=== PATIENT | male | born 1965 | race Caucasian/White ===

== ENCOUNTER 2019-10-12 21:41 | Inpatient (IN) | payer OTHER, BC ==
--- NOTE | 2019-10-12 22:48 | PDOC ---
History of Present Illness - General Chief Complaint: Pain Stated Complaint: BACK PAIN Time Seen by Provider: 10/12/19 22:47 History Source: Patient, Family - History of Present Illness Initial Comments: 10/13/19 00:00 Mr. Mclean is a 54 y/o man with hx prior urolithiasis, asthma p.w acute onset L flank pain that started last night. He reports that the pain began while he was at rest, described as a severe ache, radiating to the L flank. He reports nausea with one episode of nbnb vomiting last night. He denies any fevers, chills, weakness, chest pain, shortness of breath. He reports remote history of urolithiasis that passed spontaneously. Past History - Past Medical History Allergies/Adverse Reactions: Allergies Allergy/AdvReac Type Severity Reaction Status Date / Time Penicillins Allergy Verified 10/12/19 21:45 Asthma: Yes (childhood) COPD: No GI Disorders: Yes (colitis) Kidney Stones: Yes - Surgical History Abdominal Surgery: Yes (colon resection) - Psycho Social/Smoking Cessation Hx Smoking History: Current some day smoker Information on smoking cessation initiated: No Review of Systems - Review of Systems Able to Perform ROS?: Yes Comments:: 10/13/19 00:13 ROS: GENERAL/CONSTITUTIONAL: Chills. No fever. No weakness. HEAD, EYES, EARS, NOSE AND THROAT: No change in vision. No ear pain or discharge. No sore throat. CARDIOVASCULAR: No chest pain or shortness of breath RESPIRATORY: No cough, wheezing, or hemoptysis. GASTROINTESTINAL: Nausea, vomiting. No diarrhea or constipation. GENITOURINARY: No dysuria, frequency, or change in urination. MUSCULOSKELETAL: Flank pain. No other joint or muscle swelling or pain. No neck or back pain. SKIN: No rash NEUROLOGIC: No headache, vertigo, loss of consciousness, or change in strength/ sensation. ENDOCRINE: No increased thirst. No abnormal weight change HEMATOLOGIC/LYMPHATIC: No anemia, easy bleeding, or history of blood clots. ALLERGIC/IMMUNOLOGIC: No hives or skin allergy. *Physical Exam - Vital Signs Last Vital Signs Temp Pulse Resp BP Pulse Ox 98.1 F 75 18 132/77 100 10/12/19 21:42 10/12/19 21:42 10/12/19 21:42 10/12/19 21:42 10/12/19 21:42 - Physical Exam 10/13/19 00:15 PE: GENERAL: Awake, alert, and fully oriented, in no acute distress HEAD: No signs of trauma, normocephalic, atraumatic EYES: PERRLA, EOMI, sclera anicteric, conjunctiva clear ENT: Auricles normal inspection, hearing grossly normal, nares patent, oropharynx clear without exudates. Moist mucosa NECK: Normal ROM, supple, no lymphadenopathy, JVD, or masses LUNGS: No distress, speaks full sentences, clear to auscultation bilaterally HEART: Regular rate and rhythm, normal S1 and S2, no murmurs, rubs or gallops, peripheral pulses normal and equal bilaterally. ABDOMEN: Soft, nontender, normoactive bowel sounds. No guarding, no rebound. No masses EXTREMITIES : Normal inspection, Normal range of motion, no edema. No clubbing or cyanosis NEUROLOGICAL: Cranial nerves II through XII grossly intact. Normal speech, normal gait, no focal sensorimotor deficits SKIN: Warm, Dry, normal turgor, no rashes or lesions noted ED Treatment Course - LABORATORY CBC & Chemistry Diagram: 10/12/19 23:14 10/12/19 23:14 Medical Decision Making - Medical Decision Making 10/13/19 00:16 54M w/hx prior urolithiasis, asthma, p/w acute onset L flank pain, c/w urolithiasis vs infected stone. Differential also includes MSK strain, UTI/ pyelonephritis, although UTI unlikely without dysuria. Plan: CBC CMP UA Urine culture Toradol 30 mg IV 1L IV LR Spiral CT renal stone Dispo: Pending labs, imaging Discharge - Follow up/Referral Referrals: Lonnie Crawford [Primary Care Provider] - - Patient Discharge Instructions - Post Discharge Activity
--- NOTE | 2019-10-12 22:59 | PDOC ---
Attending Attestation - Resident Resident Name: Arias Amaro - ED Attending Attestation I have performed the following: I have examined & evaluated the patient, The case was reviewed & discussed with the resident, I agree w/resident's findings & plan - HPI HPI: 10/13/19 01:15 Pt comes with dysuria and flank pain and possible kidney stone, Pt has never been here before and we have no labs for comparision. Afebrile VSS - Physicial Exam PE: 10/13/19 01:16 afebrile A+Ox3 Heart RRR Lungs clear Abd soft NT ND + BS - Medical Decision Making 10/13/19 01:13 Pt has elevated BUN/Cr and he will receive 1L IV hydration as well as oral hydration. 10/13/19 01:13 Pt has hypoK+ and he will have mg and K repleted 10/13/19 01:14 WBC is 14; as well as leukicytes in the UA; he will be treated with bactrim DS; fluoroquinolones have black box warning; pt has PCN allergy. 10/13/19 02:59 Pt has a 6.4mm stone in the left ureter; Pt has hydronephrosis; infected stone and he has elevated BUN/Cr. Pt will be admitted. [facility] are aware. 10/13/19 03:14 Patient Name: MOLLY HUMPHRIES THIS IS A PRELIMINARY REPORT FROM [facility] DATE OF SERVICE: 2019-10-13 01:23:19 IMAGES: [id number] EXAM: CT ABDOMEN WITHOUT CONTRAST AND CT PELVIS WITHOUT CONTRAST HISTORY: 54-Year-Old Male Flank Pain And History Of Stones. COMPARISON: None. FINDINGS: Mild basilar atelectasis. Lack of intravenous contrast limits this exam. Mild hepatosplenomegaly. Cholelithiasis with moderate gallbladder distention most likely associated with gallbladder dysmotility may be associated with chronic cholecystitis. Pancreas and adrenal glands appear unremarkable. Right kidney cortical cyst. Moderate left hydronephrosis with a 6 x 6 x 4 mm stone in the proximal left ureter near the left ureteropelvic junction. Small hiatal hernia. Stomach and proximal small bowel appear unremarkable. Mild nonspecific wall thickening of the distal small bowel in the right lower quadrant most likely to mild infectious or inflammatory enteritis. Total colectomy with a rectal pouch formed in the pelvis and mild nonspecific wall thickening of the rectal pouch most likely due to infectious or inflammatory enteritis. Nodular nonspecific prostatomegaly. Multiple bladder stones. Mild bladder wall thickening may be due to infectious cystitis. Moderate to severe degenerative disc disease and degenerative joint disease of the facets in the lower lumbar spine. Transitional anatomy at the lumbosacral junction. Anterior midline abdominal scarring. IMPRESSION: Moderate left hydronephrosis with a 6 mm stone in the proximal left ureter near the left ureteropelvic junction. Multiple bladder stones. Mild bladder wall thickening may be due to infectious cystitis. Nodular nonspecific prostatomegaly. If clinically indicated follow-up outpatient PSA level may be needed. Small hiatal hernia. Mild nonspecific wall thickening of the distal small bowel in the right lower quadrant most likely to mild infectious or inflammatory enteritis. Total colectomy with a rectal pouch formed in the pelvis and mild nonspecific wall thickening of the rectal pouch most likely due to infectious or inflammatory enteritis. Mild hepatosplenomegaly. Cholelithiasis with moderate gallbladder distention most likely associated with gallbladder dysmotility may be associated with chronic cholecystitis. If clinically indicated follow-up Outpatient Nuclear Medicine Hepatobiliary Scan With a Slow 10 Minute Cholecystokinin Injection Gallbladder Ejection Fraction Calculation may be needed. Moderate to severe degenerative disc disease and degenerative joint disease of the facets in the lower lumbar spine. Transitional anatomy at the lumbosacral junction.
[2019-10-12] MEDS ORDERED: IBUPROFEN 600 MG TABLET (FP) PO ONE (23:09)
[2019-10-12] MEDS ORDERED: KETOROLAC TROMETHAMINE 15 MG/ML VIAL IM ONE ×2 (23:12)
[2019-10-12] MEDS ORDERED: KETOROLAC TROMETHAMINE 30 MG/1 ML VIAL ONE (23:27)
[2019-10-12] MEDS ORDERED: KETOROLAC TROMETHAMINE 15 MG/ML VIAL IVPB ONE (23:28)
[2019-10-12 23:32] LABS: BASO % 0.4 % (0-2.0); HEMATOCRIT 46.6 % (35.4-49); HEMOGLOBIN 15.7 GM/dL (11.7-16.9); LYMPH % 7.8 % (8-40); MCH 31.1 pg (25.7-33.7); MCHC 33.7 g/dl (32.0-35.9); MEAN CELL VOLUME 92.3 fl (80-96); MEAN PLT VOLUME 7.8 fl (7.5-11.1); MONO % 8.3 % (3.8-10.2); NEUT % 82.5 % (42.8-82.8); PLATELET COUNT 255 K/MM3 (134-434); RBC 5.05 M/mm3 (4.00-5.60)
[2019-10-12 23:51] LABS: ALBUMIN 3.9 g/dl (3.4-5.0); BLOOD UREA NITROGEN 24.9 mg/dL (7-18); CALCIUM 8.9 mg/dL (8.5-10.1); CREATININE 2.6 mg/dL (0.55-1.3); POTASSIUM 3.3 mmol/L (3.5-5.1); TOT PROT 7.7 g/dl (6.4-8.2)
[2019-10-13] MEDS ORDERED: LACTATED RINGERS SOLUTION 1000 ML INFUS.BAG IV ONE (00:10)
[2019-10-13 00:32] LABS: EPI CELLS 13.3 /HPF (0-5/HPF); HYALINE CASTS 22 /lpf (0-8); PH,URINE 5.5 (5.0-8.0); URINE APPEARANCE CLOUDY; URINE BACTERIA 3.8 /hpf (NEGATIVE); URINE BILIRUBIN NEGATIVE (NEGATIVE); URINE COLOR YELLOW; URINE GLUCOSE (UA) NEGATIVE (NEGATIVE); URINE KETONE TRACE (NEGATIVE); URINE LEUK ESTERASE 1+ (NEGATIVE); URINE NITRITE NEGATIVE (NEGATIVE); URINE PROTEIN 1+ (NEGATIVE); URINE RBC 7 /hpf (0-4); URINE WBC 18 /hpf (0-5)
[2019-10-13] MEDS ORDERED: POTASSIUM CHLORIDE TABS 20 MEQ TABLET.ER (FP) PO ONE ×3 (00:53→04:11)
[2019-10-13] MEDS ORDERED: SULFAMETHOXAZOLE/TRIMETHOPRIM 800MG/160MG D.S. TABLET PO ONE (00:53)
[2019-10-13] MEDS ORDERED: MAGNESIUM SULF 50% (8.12 MEQ/2 ML-1 GM VIAL) IVPB ONE (00:53)
[2019-10-13] MEDS ORDERED: SULFAMETHOXAZOLE/TRIMETHOPRIM 800MG/160MG D.S. TABLET ONE (01:15)
[2019-10-13] MEDS ORDERED: MAGNESIUM SULFATE IN WATER 2 GM/50 ML IVPB IVPB ONE (01:16)
--- NOTE | 2019-10-13 02:15 | PDOC ---
*Physical Exam - Vital Signs Last Vital Signs Temp Pulse Resp BP Pulse Ox 98.1 F 75 18 132/77 100 10/12/19 21:42 10/12/19 21:42 10/12/19 21:42 10/12/19 21:42 10/12/19 21:42 ED Treatment Course - LABORATORY CBC & Chemistry Diagram: 10/12/19 23:14 10/12/19 23:14 - ADDITIONAL ORDERS Additional order review: Laboratory Results 10/13/19 10/12/19 00:12 23:14 Sodium 142 Potassium 3.3 L Chloride 112 H Carbon Dioxide 24 Anion Gap 6 L BUN 24.9 H Creatinine 2.6 H Est GFR (CKD-EPI)AfAm 30.80 Est GFR (CKD-EPI)NonAf 26.57 Random Glucose 145 H Calcium 8.9 Total Bilirubin 1.0 AST 32 ALT 33 Alkaline Phosphatase 148 H Total Protein 7.7 Albumin 3.9 Urine Color Yellow Urine Appearance Cloudy Urine pH 5.5 Ur Specific [place] 1.026 Urine Protein 1+ H Urine Glucose (UA) Negative Urine Ketones Trace H Urine Blood 2+ H Urine Nitrite Negative Urine Bilirubin Negative Urine Urobilinogen 1.0 Ur Leukocyte Esterase 1+ H Urine WBC (Auto) 18 Urine RBC (Auto) 7 Urine Casts (Auto) 22 U Epithel Cells (Auto) 13.3 Urine Bacteria (Auto) 3.8 10/12/19 23:14 RBC 5.05 MCV 92.3 MCHC 33.7 RDW 14.0 MPV 7.8 Neutrophils % 82.5 Lymphocytes % 7.8 L Monocytes % 8.3 Eosinophils % 1.0 Basophils % 0.4 - Medications Given in the ED: ED Medications Discontinued Medications Generic Name Dose Route Start Last Admin Trade Name Tiffani PRN Reason Stop Dose Admin Ibuprofen 600 mg 10/12/19 23:09 10/12/19 23:38 Motrin - PO 10/12/19 23:10 Not Given ONCE ONE Ketorolac Tromethamine 15 mg 10/12/19 23:12 10/12/19 23:38 Toradol Injection - IM 10/12/19 23:13 Not Given ONCE ONE Ketorolac Tromethamine 30 mg 10/12/19 23:12 10/12/19 23:32 Toradol Injection - IM 10/12/19 23:13 Not Given ONCE ONE Ketorolac Tromethamine 30 mg 10/12/19 23:28 10/12/19 23:38 Toradol Injection - IVPB 10/12/19 23:29 30 mg ONCE ONE Administration Lactated Ringer's 1,000 ml 10/13/19 00:10 10/13/19 00:13 Lactated Ringers Solution IV 10/13/19 00:11 1,000 ml ONCE ONE Administration Magnesium Sulfate 2 gm 10/13/19 00:53 10/13/19 01:21 Magnesium Sulfate IVPB 10/13/19 00:54 2 gm ONCE ONE Administration Potassium Chloride 40 meq 10/13/19 00:53 10/13/19 01:21 K-Dur - PO 10/13/19 00:54 40 meq ONCE ONE Administration Trimethoprim/Sulfamethoxazole 1 each 10/13/19 00:53 10/13/19 01:21 Bactrim Ds - PO 10/13/19 00:54 1 each ONCE ONE Administration Medical Decision Making - Medical Decision Making 10/13/19 02:14 54M w/hx prior urolithiasis, asthma, p/w acute onset L flank pain, c/w urolithiasis vs infected stone. WBC 14.0 Cr 2.6 UA with 1+ leuk CT: 6mm stone in left kidney with hydroureter will admit for UTI, hydroureter, 6mm stone and infected stone pending mbmd 10/13/19 02:[address] ashraf will repeat bmp and ua for clean catch Discharge - Discharge Information Problems reviewed: Yes Clinical Impression/Diagnosis: Kidney stone UTI (urinary tract infection) Qualifiers: Urinary tract infection type: site unspecified Hematuria presence: without hematuria Qualified Code(s): N39.0 - Urinary tract infection, site not specified Condition: Fair - Follow up/Referral Referrals: Lonnie Crawford [Primary Care Provider] - - Patient Discharge Instructions - Post Discharge Activity
[2019-10-13] MEDS ORDERED: LACTATED RINGERS SOLUTION 1,000 ML/1,000 ML INFUS.BAG IV SCH (03:30)
[2019-10-13 04:01] LABS: BLOOD UREA NITROGEN 23.9 mg/dL (7-18); CALCIUM 8.8 mg/dL (8.5-10.1); CREATININE 2.4 mg/dL (0.55-1.3); POTASSIUM 3.2 mmol/L (3.5-5.1)
--- NOTE | 2019-10-13 04:07 | HP ---
CHIEF COMPLAINT: back pain PCP: Dr. Lonnie Crawford HISTORY OF PRESENT ILLNESS: Yaron Mclean is a 54 year old male with a past medical history of asthma, gout (on allopurinol), urolithiasis, colitis (s/p colon resection) who presents with a multiple day history of flank pain. The patient noted that he was sitting and resting when his flank pain on the L side began 2 days prior to admission. He stated that the pain was of a dull nature and was not relieved with positional changes or at home pain medications. He was unable to lay flat on his back, however he noted that he has disk disease and is not typically able to lay on his back for extended periods of time. The pain radiated to his L side but did not radiate further to his groin. He noted that he had bloating and mild abdominal pain, nausea, and one episode of non bloody non bilious vomiting. Endorsed poor appetite and poor fluid intake for the last several days. Also endorsed a subjective feeling of warmth. Denies dietary changes, excessive calcium consumption, no MVI or supplements. Denies dysuria, hematuria , pyuria, frequency, hesitancy, chest pain, shortness of breath, chills, constipation, diarrhea, dizziness, lightheadedness, headaches, numbness, tingling. ER course was notable for: (1) WBC 14.0, K 3.3, CRE 2.6, UA + for LE, bacteria, WBC but with elevated epithelial cells (2) CT as per call circuit worker read noting moderate L hydronephrosis with mm stone in the proximal L ureter near L uteropelvic junction, bladder stones, mild bladder wall thickening, prostatomegaly, nonspecific distal small bowel changes suggestive of mild infection or inflammatory process, mild hepatosplenomegaly, cholelithaisis, moderate to severe degenerative disc disease (3) Given 2L LR, Mg 2gm, Toradol 30mg , K dur, Bactrim Recent Travel: denies PAST MEDICAL HISTORY: as above PAST SURGICAL HISTORY: colon resection Social History: Smoking: occasional cigars Alcohol: denies Drugs: denies Allergies Penicillins Allergy (Verified 10/12/19 21:45) HOME MEDICATIONS: REVIEW OF SYSTEMS CONSTITUTIONAL: fever, loss of appetite Absent: chills, diaphoresis, generalized weakness, malaise, HEENT: Absent: rhinorrhea, nasal congestion, throat pain, throat swelling, difficulty swallowing, CARDIOVASCULAR: Absent: chest pain, syncope, palpitations, irregular heart rate, lightheadedness RESPIRATORY: Absent: cough, shortness of breath, dyspnea with exertion, orthopnea, wheezing, GASTROINTESTINAL: abdominal distension, nausea, vomiting Absent: abdominal pain, diarrhea, constipation, GENITOURINARY: flank pain Absent: dysuria, frequency, urgency, hesitancy, hematuria, genital pain MUSCULOSKELETAL: back pain Absent: myalgia, arthralgia, joint swelling, neck pain SKIN: Absent: rash, itching, pallor HEMATOLOGIC/IMMUNOLOGIC: Absent: easy bleeding, easy bruising, lymphadenopathy, frequent infections ENDOCRINE: Absent: unexplained weight gain, unexplained weight loss, heat intolerance, cold intolerance NEUROLOGIC: Absent: headache, focal weakness or paresthesias, dizziness, unsteady gait, seizure, PSYCHIATRIC: Absent: anxiety, depression, suicidal or homicidal ideation, hallucinations. PHYSICAL EXAMINATION Vital Signs - 24 hr 10/12/19 21:42 Temperature 98.1 F Pulse Rate 75 Respiratory 18 Rate Blood Pressure 132/77 O2 Sat by Pulse 100 Oximetry (%) GENERAL: Awake, alert, and fully oriented, in no acute distress. HEAD: Normal with no signs of trauma. EYES: Pupils equal, round and reactive to light, extraocular movements intact, sclera anicteric, conjunctiva clear. Noted strabismus. EARS, NOSE, THROAT: Oropharynx clear without exudates. Dry mucous membranes. LUNGS: Breath sounds equal, clear to auscultation bilaterally. No wheezes, and no crackles. No accessory muscle use. HEART: Regular rate and rhythm, normal S1 and S2 without murmur, rub. ABDOMEN: Soft, nontender, not distended, normoactive bowel sounds, no guarding, no rebound, no masses. Noted surgical scars on abdomen with chronic fibrotic changes. MUSCULOSKELETAL: Normal range of motion at all joints. No bony deformities or tenderness. No CVA tenderness (Cyrus punch negative). UPPER EXTREMITIES: 2+ pulses, warm, well-perfused. No cyanosis. No clubbing. No peripheral edema. LOWER EXTREMITIES: 2+ pulses, warm, well-perfused. No calf tenderness. No peripheral edema. NEUROLOGICAL: Cranial nerves II-XII intact. 5/5 muscle strength bilaterally upper and lower extremities. PSYCHIATRIC: Cooperative. Good eye contact. Appropriate mood and affect. SKIN: Warm, dry, normal turgor, no rashes or lesions noted, normal capillary refill. Laboratory Results - last 24 hr 10/12/19 10/12/19 10/13/19 23:14 23:14 00:12 WBC 14.0 H RBC 5.05 Hgb 15.7 Hct 46.6 MCV 92.3 MCH 31.1 MCHC 33.7 RDW 14.0 Plt Count 255 MPV 7.8 Absolute Neuts (auto) 11.6 H Neutrophils % 82.5 Lymphocytes % 7.8 L Monocytes % 8.3 Eosinophils % 1.0 Basophils % 0.4 Nucleated RBC % 0 Sodium 142 Potassium 3.3 L Chloride 112 H Carbon Dioxide 24 Anion Gap 6 L BUN 24.9 H Creatinine 2.6 H Est GFR (CKD-EPI)AfAm 30.80 Est GFR (CKD-EPI)NonAf 26.57 Random Glucose 145 H Calcium 8.9 Total Bilirubin 1.0 AST 32 ALT 33 Alkaline Phosphatase 148 H Total Protein 7.7 Albumin 3.9 Urine Color Yellow Urine Appearance Cloudy Urine pH 5.5 Ur Specific [place] 1.026 Urine Protein 1+ H Urine Glucose (UA) Negative Urine Ketones Trace H Urine Blood 2+ H Urine Nitrite Negative Urine Bilirubin Negative Urine Urobilinogen 1.0 Ur Leukocyte Esterase 1+ H Urine WBC (Auto) 18 Urine RBC (Auto) 7 Urine Casts (Auto) 22 U Epithel Cells (Auto) 13.3 Urine Bacteria (Auto) 3.8 ASSESSMENT/PLAN: Yaron Mclean is a 54 year old male with a past medical history of asthma, gout (on allopurinol), urolithiasis, colitis (s/p colon resection) admitted for ureterolithiasis. Ureterolithiasis - as noted on CT scan as above - patient with hx of stones and currently on allopurinol and has had poor oral intake for last several days - continue hydration NS at 150cc/hr - strain all urine - Urology consulted - UA not clean catch, repeat UA - given Bactrim in ED - hold off further abx as patient without clinical signs of infection, if has a fever or determined to have clean catch UA positive for infection can restart abx - Ucx pending - CT noting bladder stones and bladder wall thickening, continue to monitor and low threshold to resume abx if fever occur TERRELL vs CKD - on admission 2.6, trending to 2.4 - unclear baseline - likely in setting of hydronephrosis - attempt to obtain records from PCP - continue hydration - repeat labs Prostatomegaly - can follow up with urology outpatient CT noting hepatosplenomegaly, cholelithiasis, distal small bowel changes - has resolving GI symptoms - will likely need HIDA - will need outpatient GI follow up Gout - can resume allopurinol once reconciled DVT PPx - heparin 5000 units subq tid FEN - NS at 150cc/hr - continue to monitor electrolytes and replete as necessary, hypokalemia noted and repleted - Regular diet Dispo - continue to monitor on Med-surg - Needs medication reconcilation Family Medical History Family Hx Diabetes: Grandfather (paternal) Visit type - Emergency Visit Emergency Visit: Yes ED Registration Date: 10/13/19 Care time: The patient presented to the Emergency Department on the above date and was hospitalized for further evaluation of their emergent condition. - New Patient This patient is new to me today: Yes Date on this admission: 10/13/19 - Critical Care Critical Care patient: No
[2019-10-13] MEDS: SODIUM CHLORIDE 1,000 ML IV SCH (04:13)
[2019-10-13] MEDS ORDERED: POTASSIUM CHLORIDE TABS 10 MEQ TABLET.ER (FP) ONE (04:14)
--- NOTE | 2019-10-13 04:48 | PN ---
Teaching Attending Note Name of Resident: Sami Ortiz ATTENDING PHYSICIAN STATEMENT I saw and evaluated the patient. I reviewed the resident's note and discussed the case with the resident. I agree with the resident's findings and plan as documented. SUBJECTIVE: This is a 54 year old man with a history of asthma, colitis, colon resection, kidney stones, lumbar disc disease, gout who comes to the ED today complaining of left flank pain x 2 days. The pain started at rest and he describes it as dull and non-radiating. It is associated with nausea and he vomited once. He thinks he has had fevers and he denies dysuria, hematuria, urinary frequency, hematemesis, diarrhea, constipation, melena, rectal bleeding. OBJECTIVE: Vital Signs Period Temp Pulse Resp BP Sys/Chavez Pulse Ox Last 24 Hr 98.1 F 67-75 18-18 105-132/63-77 99-100 HEART: S1S2, RRR LUNGS: Clear ABDOMEN: Soft, non-tender, non-distended, normal BS BACK: No CVA tenderness EXTREMITIES: No edema Laboratory Tests 10/12/19 10/12/19 10/13/19 23:14 23:14 00:12 WBC 14.0 H RBC 5.05 Hgb 15.7 Hct 46.6 MCV 92.3 MCH 31.1 MCHC 33.7 RDW 14.0 Plt Count 255 MPV 7.8 Absolute Neuts (auto) 11.6 H Neutrophils % 82.5 Lymphocytes % 7.8 L Monocytes % 8.3 Eosinophils % 1.0 Basophils % 0.4 Nucleated RBC % 0 Sodium 142 Potassium 3.3 L Chloride 112 H Carbon Dioxide 24 Anion Gap 6 L BUN 24.9 H Creatinine 2.6 H Est GFR (CKD-EPI)AfAm 30.80 Est GFR (CKD-EPI)NonAf 26.57 Random Glucose 145 H Calcium 8.9 Total Bilirubin 1.0 AST 32 ALT 33 Alkaline Phosphatase 148 H Total Protein 7.7 Albumin 3.9 Urine Color Yellow Urine Appearance Cloudy Urine pH 5.5 Ur Specific [place] 1.026 Urine Protein 1+ H Urine Glucose (UA) Negative Urine Ketones Trace H Urine Blood 2+ H Urine Nitrite Negative Urine Bilirubin Negative Urine Urobilinogen 1.0 Ur Leukocyte Esterase 1+ H Urine WBC (Auto) 18 Urine RBC (Auto) 7 Urine Casts (Auto) 22 U Epithel Cells (Auto) 13.3 Urine Bacteria (Auto) 3.8 10/13/19 03:30 WBC RBC Hgb Hct MCV MCH MCHC RDW Plt Count MPV Absolute Neuts (auto) Neutrophils % Lymphocytes % Monocytes % Eosinophils % Basophils % Nucleated RBC % Sodium 143 Potassium 3.2 L Chloride 112 H Carbon Dioxide 23 Anion Gap 8 BUN 23.9 H Creatinine 2.4 H Est GFR (CKD-EPI)AfAm 33.92 Est GFR (CKD-EPI)NonAf 29.27 Random Glucose 150 H Calcium 8.8 Total Bilirubin AST ALT Alkaline Phosphatase Total Protein Albumin Urine Color Urine Appearance Urine pH Ur Specific [place] Urine Protein Urine Glucose (UA) Urine Ketones Urine Blood Urine Nitrite Urine Bilirubin Urine Urobilinogen Ur Leukocyte Esterase Urine WBC (Auto) Urine RBC (Auto) Urine Casts (Auto) U Epithel Cells (Auto) Urine Bacteria (Auto) ASSESSMENT AND PLAN: This is a 54 year old man with a history of asthma, colitis, colon resection, kidney stones, lumbar disc disease, gout who presented to the ED with left flank pain x 2 days. 1. Left obstructing UPJ stone with moderate left hydronephrosis - CTAP: Moderate left hydronephrosis with a 6 mm stone in the proximal left ureter near the left ureteropelvic junction. Multiple bladder stones. Mild bladder wall thickening may be due to infectious cystitis. Nodular nonspecific prostatomegaly. If clinically indicated follow-up outpatient PSA level may be needed. Small hiatal hernia. Mild nonspecific wall thickening of the distal small bowel in the right lower quadrant most likely to mild infectious or inflammatory enteritis. Total colectomy with a rectal pouch formed in the pelvis and mild nonspecific wall thickening of the rectal pouch most likely due to infectious or inflammatory enteritis. Mild hepatosplenomegaly. Cholelithiasis with moderate gallbladder distention most likely associated with gallbladder dysmotility may be associated with chronic cholecystitis. If clinically indicated follow-up Outpatient Nuclear Medicine Hepatobiliary Scan With a Slow 10 Minute Cholecystokinin Injection Gallbladder Ejection Fraction Calculation may be needed. Moderate to severe degenerative disc disease and degenerative joint disease of the facets in the lower lumbar spine. Transitional anatomy at the lumbosacral junction - IV fluid - Pain control - Urology consult 2. Acute kidney injury secondary to obstructive nephropathy - Baseline creatinine not known - Monitor creatinine with IV fluid 3. Cholelithiasis with distended gallbladder - Asymptomatic - Will need HIDA 4. Possible UTI - CT shows mild bladder wall thickening - UA with 1+ leukocyte esterase, negative nitrite, 18 WBC, 13 epithelial cells - WBC 14.0 - Patient asymptomatic - Bactrim DS given in ED - Follow-up urine culture 5. Hypokalemia - Replete potassium 6. Colitis - Patient has history of colitis and colectomy - unclear what the etiology was - CT shows mild wall thickening of distal SB and rectal pouch - Will need GI follow-up 7. Asthma - Stable 8. History of gout 9. Lumbar disc disease
[2019-10-13 05:24] VITALS: BMI 31.1
[2019-10-13] MEDS: ACETAMINOPHEN 1000 MG/100 ML VIAL (NON FORMULARY) IVPB PRN ×3 (05:53→22:07)
[2019-10-13] MEDS: HEPARIN NA (PORCINE) 5,000 UNITS/ML 1ML VIAL SQ SCH ×3 (05:53→22:09)
[2019-10-13 08:01] LABS: HEMATOCRIT 41.3 % (35.4-49); HEMOGLOBIN 14.1 GM/dL (11.7-16.9); MCH 31.7 pg (25.7-33.7); MCHC 34.3 g/dl (32.0-35.9); MEAN CELL VOLUME 92.4 fl (80-96); MEAN PLT VOLUME 7.9 fl (7.5-11.1); PLATELET COUNT 220 K/MM3 (134-434); RBC 4.47 M/mm3 (4.00-5.60); WHITE BLOOD COUNT 9.1 K/mm3 (4.0-10.0)
[2019-10-13 08:21] LABS: BLOOD UREA NITROGEN 22.4 mg/dL (7-18); CALCIUM 8.5 mg/dL (8.5-10.1); CREATININE 2.2 mg/dL (0.55-1.3); MAGNESIUM 2.3 mg/dL (1.8-2.4); PHOSPHOROUS 2.9 mg/dL (2.5-4.9); POTASSIUM 3.5 mmol/L (3.5-5.1); URIC ACID 6.4 mg/dL (2.6-7.2)
[2019-10-13 08:56] LABS: EPI CELLS 4.8 /HPF (0-5/HPF); HYALINE CASTS 22 /lpf (0-8); PH,URINE 5.5 (5.0-8.0); URINE APPEARANCE CLOUDY; URINE BACTERIA 4.8 /hpf (NEGATIVE); URINE BILIRUBIN NEGATIVE (NEGATIVE); URINE COLOR YELLOW; URINE GLUCOSE (UA) NEGATIVE (NEGATIVE); URINE KETONE NEGATIVE (NEGATIVE); URINE LEUK ESTERASE TRACE (NEGATIVE); URINE NITRITE NEGATIVE (NEGATIVE); URINE PROTEIN 2+ (NEGATIVE); URINE RBC 14 /hpf (0-4); URINE UROBILINOGEN 0.2 mg/dL (0.2-1.0); URINE WBC 18 /hpf (0-5)
--- NOTE | 2019-10-13 13:31 | EKG ---
Test Reason : Blood Pressure : / mmHG Vent. Rate : 064 BPM Atrial Rate : 064 BPM P-R Int : 162 ms QRS Dur : 094 ms QT Int : 380 ms P-R-T Axes : 048 009 032 degrees QTc Int : 392 ms NORMAL SINUS RHYTHM NORMAL ECG NO PREVIOUS ECGS AVAILABLE Confirmed by MD GENEVA, CLEM ([id number]) on 10/13/2019 1:31:09 PM Referred By: Confirmed By:CLEM BEAN MD
[2019-10-13] MEDS ORDERED: TAMSULOSIN HCL 0.4 MG CAP PO ONE (15:01)
--- NOTE | 2019-10-13 15:04 | PN ---
Physical Exam: SUBJECTIVE: Patient seen and examined, left flank symptoms resolved, no urinary symptoms, doing well, asking for food. OBJECTIVE: Vital Signs Period Temp Pulse Resp BP Sys/Chavez Pulse Ox Last 24 Hr 97.9 F-98.1 F 67-75 18-18 105-132/63-77 99-100 Intake & Output 10/10/19 10/11/19 10/12/19 10/13/19 23:59 23:59 23:59 23:59 Intake Total 250 Balance 250 Weight 210 lb 214 lb 5 oz General: sitting in bed in no acute distress neck: Soft, supple Chest: CTAb, no rales or wheezing Abdomen:soft, obese, no CVA or suprapubic tenderness, non tender throughout Extremities: no edema Psych: pleasant, co-operative Home Medications Medication Instructions Recorded Allopurinol 300 mg PO DAILY 10/13/19 Laboratory Results - last 24 hr 10/12/19 10/12/19 10/13/19 23:14 23:14 00:12 WBC 14.0 H RBC 5.05 Hgb 15.7 Hct 46.6 MCV 92.3 MCH 31.1 MCHC 33.7 RDW 14.0 Plt Count 255 MPV 7.8 Absolute Neuts (auto) 11.6 H Neutrophils % 82.5 Lymphocytes % 7.8 L Monocytes % 8.3 Eosinophils % 1.0 Basophils % 0.4 Nucleated RBC % 0 Sodium 142 Potassium 3.3 L Chloride 112 H Carbon Dioxide 24 Anion Gap 6 L BUN 24.9 H Creatinine 2.6 H Est GFR (CKD-EPI)AfAm 30.80 Est GFR (CKD-EPI)NonAf 26.57 Random Glucose 145 H Uric Acid Calcium 8.9 Phosphorus Magnesium Total Bilirubin 1.0 AST 32 ALT 33 Alkaline Phosphatase 148 H Total Protein 7.7 Albumin 3.9 Urine Color Yellow Urine Appearance Cloudy Urine pH 5.5 Ur Specific [place] 1.026 Urine Protein 1+ H Urine Glucose (UA) Negative Urine Ketones Trace H Urine Blood 2+ H Urine Nitrite Negative Urine Bilirubin Negative Urine Urobilinogen 1.0 Ur Leukocyte Esterase 1+ H Urine WBC (Auto) 18 Urine RBC (Auto) 7 Urine Casts (Auto) 22 U Epithel Cells (Auto) 13.3 Urine Bacteria (Auto) 3.8 10/13/19 10/13/19 10/13/19 03:30 06:00 07:20 WBC 9.1 RBC 4.47 Hgb 14.1 Hct 41.3 MCV 92.4 MCH 31.7 MCHC 34.3 RDW 14.0 Plt Count 220 MPV 7.9 Absolute Neuts (auto) Neutrophils % Lymphocytes % Monocytes % Eosinophils % Basophils % Nucleated RBC % Sodium 143 Potassium 3.2 L Chloride 112 H Carbon Dioxide 23 Anion Gap 8 BUN 23.9 H Creatinine 2.4 H Est GFR (CKD-EPI)AfAm 33.92 Est GFR (CKD-EPI)NonAf 29.27 Random Glucose 150 H Uric Acid Calcium 8.8 Phosphorus Magnesium Total Bilirubin AST ALT Alkaline Phosphatase Total Protein Albumin Urine Color Yellow Urine Appearance Cloudy Urine pH 5.5 Ur Specific [place] 1.024 Urine Protein 2+ H Urine Glucose (UA) Negative Urine Ketones Negative Urine Blood 3+ H Urine Nitrite Negative Urine Bilirubin Negative Urine Urobilinogen 0.2 Ur Leukocyte Esterase Trace Urine WBC (Auto) 18 Urine RBC (Auto) 14 Urine Casts (Auto) 22 U Epithel Cells (Auto) 4.8 Urine Bacteria (Auto) 4.8 10/13/19 07:20 WBC RBC Hgb Hct MCV MCH MCHC RDW Plt Count MPV Absolute Neuts (auto) Neutrophils % Lymphocytes % Monocytes % Eosinophils % Basophils % Nucleated RBC % Sodium 142 Potassium 3.5 Chloride 114 H Carbon Dioxide 22 Anion Gap 6 L BUN 22.4 H Creatinine 2.2 H Est GFR (CKD-EPI)AfAm 37.69 Est GFR (CKD-EPI)NonAf 32.52 Random Glucose 100 Uric Acid 6.4 Calcium 8.5 Phosphorus 2.9 Magnesium 2.3 Total Bilirubin AST ALT Alkaline Phosphatase Total Protein Albumin Urine Color Urine Appearance Urine pH Ur Specific [place] Urine Protein Urine Glucose (UA) Urine Ketones Urine Blood Urine Nitrite Urine Bilirubin Urine Urobilinogen Ur Leukocyte Esterase Urine WBC (Auto) Urine RBC (Auto) Urine Casts (Auto) U Epithel Cells (Auto) Urine Bacteria (Auto) Active Medications Generic Name Dose Route Start Last Admin Trade Name Freq PRN Reason Stop Dose Admin Acetaminophen 1,000 mg 10/13/19 03:44 10/13/19 13:27 Ofirmev Injection - IVPB 1,000 mg Q6H PRN Administration PAIN LEVEL 6-10 Heparin Sodium (Porcine) 5,000 unit 10/13/19 06:00 10/13/19 13:26 Heparin - SQ Not Given TID RIA Sodium Chloride 1,000 mls @ 150 mls/hr 10/13/19 03:45 10/13/19 04:13 Normal Saline - IV 150 mls/hr ASDIR RIA Administration Levofloxacin 500 mg in 100 mls @ 100 mls/hr 10/13/19 14:54 Levaquin 500 Mg Premixed Ivpb - IVPB 10/13/19 15:53 ONCE ONE Protocol Levofloxacin 250 mg in 50 mls @ 50 mls/hr 10/14/19 10:00 Levaquin 250 Mg Premixed Ivpb - IVPB DAILY RIA Tamsulosin HCl 0.4 mg 10/14/19 08:30 Flomax - PO DAILY@0830 RIA Tamsulosin HCl 0.4 mg 10/13/19 15:01 Flomax - PO 10/13/19 15:02 ONCE ONE ASSESSMENT/PLAN: 54 yom with PMHx of asthma, gout (on allopurinol), urolithiasis, colitis (s/p colon resection) admitted with left flank pain, found with TERRELL, obstructive uropathy. -Obstructive uropathy with 6mm left UPJ stone with left hydronephrosis -r/o complicated UTI/Left pyelonephritis -TERRELL, obstruction vs hypovolumia vs recent bactrim -h/o Gout -CT finds of ?Colitis, no clinical evidence -thickened Gall bladder wall, ?Chronic cholecystitis, no acute sypmptoms Plan: Symptoms resolved. Cr improved. No intervention today per urology, advance diet. Aggressive hydration, strain all urine. Levaquin renal dosing for now (has tolerated well in the past). FOllow up urine cx. Start flomax. Renal/bladder US to address hydronephrosis (Since symptoms/renal function improved) Follow up additional recs from urology. bactrim prescribed on 09/07, which could have contributed to current TERRELL as well. Avoid bactrim/NSAIDs. No GI or RUQ concerns on clinical exam or history> Monitor clinically. DVTPPx heparin Dispo pending clinical improvement. Plan discussed with patient and nursing in detail, all questions answered. Visit type - Emergency Visit Emergency Visit: Yes ED Registration Date: 10/13/19 Care time: The patient presented to the Emergency Department on the above date and was hospitalized for further evaluation of their emergent condition. - New Patient This patient is new to me today: Yes Date on this admission: 10/13/19 - Critical Care Critical Care patient: No - Discharge Referral Referred to [facility] Med P.C.: No
[2019-10-13 17:35] LABS: URINE CRYSTALS FEW /hpf; YEAST NONE SEEN (NEGATIVE)
[2019-10-14] MEDS ORDERED: diphenhydrAMINE HCL 25 MG CAPSULE (FP) PO ONE (01:17)
[2019-10-14] MEDS: SODIUM CHLORIDE 1,000 ML IV SCH ×5 (01:25→23:29)
[2019-10-14] MEDS: HEPARIN NA (PORCINE) 5,000 UNITS/ML 1ML VIAL SQ SCH ×3 (06:45→21:08)
[2019-10-14 07:42] LABS: BASO % 0.3 % (0-2.0); EOS % 5.6 % (0-4.5); HEMATOCRIT 41.8 % (35.4-49); HEMOGLOBIN 14.2 GM/dL (11.7-16.9); LYMPH % 19.2 % (8-40); MCH 31.5 pg (25.7-33.7); MEAN CELL VOLUME 92.6 fl (80-96); MEAN PLT VOLUME 8.2 fl (7.5-11.1); MONO % 7.9 % (3.8-10.2); PLATELET COUNT 210 K/MM3 (134-434); RBC 4.52 M/mm3 (4.00-5.60); RDW 13.6 % (11.9-15.9); WHITE BLOOD COUNT 9.1 K/mm3 (4.0-10.0)
--- NOTE | 2019-10-14 08:05 | PN ---
Teaching Attending Note Name of Resident: Suzanne Pang ATTENDING PHYSICIAN STATEMENT I saw and evaluated the patient. I reviewed the resident's note and discussed the case with the resident. I agree with the resident's findings and plan as documented with exceptions below. SUBJECTIVE: patient seen and examined. pain improved, no new complaints. OBJECTIVE: Vital Signs Period Temp Pulse Resp BP Sys/Chavez Pulse Ox Last 24 Hr 97.5 F-98.3 F 59-72 18-18 111-118/58-77 99-99 Intake & Output 10/11/19 10/12/19 10/13/19 10/14/19 23:59 23:59 23:59 23:59 Intake Total 950 1200 Balance 950 1200 Weight 210 lb 214 lb 5 oz General; no acute distress Neck: soft, supple Chest: CTAb, no rales or wheezing Abdomen: soft, obese, no CVA/suprapubic tenderness, NT throughout extremities: no edema Home Medications Medication Instructions Recorded Allopurinol 300 mg PO DAILY 10/13/19 Active Medications Acetaminophen (Ofirmev Injection -) 1,000 mg IVPB Q6H PRN PRN Reason: PAIN LEVEL 6-10 Last Admin: 10/13/19 22:07 Dose: 1,000 mg Heparin Sodium (Porcine) (Heparin -) 5,000 unit SQ TID [facility] Last Admin: 10/14/19 06:45 Dose: Not Given Sodium Chloride (Normal Saline -) 1,000 mls @ 150 mls/hr IV ASDIR [facility] Last Admin: 10/14/19 06:45 Dose: Not Given Levofloxacin (Levaquin 250 Mg Premixed Ivpb -) 250 mg in 50 mls @ 50 mls/hr IVPB DAILY [facility] Tamsulosin HCl (Flomax -) 0.4 mg PO DAILY@0830 [facility] Laboratory Results - last 24 hr 10/13/19 10/13/19 10/13/19 06:00 07:20 07:20 WBC 9.1 RBC 4.47 Hgb 14.1 Hct 41.3 MCV 92.4 MCH 31.7 MCHC 34.3 RDW 14.0 Plt Count 220 MPV 7.9 Absolute Neuts (auto) Neutrophils % Lymphocytes % Monocytes % Eosinophils % Basophils % Nucleated RBC % Sodium 142 Potassium 3.5 Chloride 114 H Carbon Dioxide 22 Anion Gap 6 L BUN 22.4 H Creatinine 2.2 H Est GFR (CKD-EPI)AfAm 37.69 Est GFR (CKD-EPI)NonAf 32.52 Random Glucose 100 Uric Acid 6.4 Calcium 8.5 Phosphorus 2.9 Magnesium 2.3 Urine Color Yellow Urine Appearance Cloudy Urine pH 5.5 Ur Specific [place] 1.024 Urine Protein 2+ H Urine Glucose (UA) Negative Urine Ketones Negative Urine Blood 3+ H Urine Nitrite Negative Urine Bilirubin Negative Urine Urobilinogen 0.2 Ur Leukocyte Esterase Trace Urine WBC (Auto) 18 Urine RBC (Auto) 14 Urine Casts (Auto) 22 U Pathogenic Cast Auto Few U Epithel Cells (Auto) 4.8 Urine Crystals (Auto) Few Urine Bacteria (Auto) 4.8 Urine Yeast (Auto) None seen 10/14/19 06:36 WBC 9.1 RBC 4.52 Hgb 14.2 Hct 41.8 MCV 92.6 MCH 31.5 MCHC 34.0 RDW 13.6 Plt Count 210 MPV 8.2 Absolute Neuts (auto) 6.1 Neutrophils % 67.0 Lymphocytes % 19.2 D Monocytes % 7.9 Eosinophils % 5.6 H D Basophils % 0.3 Nucleated RBC % 0 Sodium Potassium Chloride Carbon Dioxide Anion Gap BUN Creatinine Est GFR (CKD-EPI)AfAm Est GFR (CKD-EPI)NonAf Random Glucose Uric Acid Calcium Phosphorus Magnesium Urine Color Urine Appearance Urine pH Ur Specific [place] Urine Protein Urine Glucose (UA) Urine Ketones Urine Blood Urine Nitrite Urine Bilirubin Urine Urobilinogen Ur Leukocyte Esterase Urine WBC (Auto) Urine RBC (Auto) Urine Casts (Auto) U Pathogenic Cast Auto U Epithel Cells (Auto) Urine Crystals (Auto) Urine Bacteria (Auto) Urine Yeast (Auto) renal/bladder US results noted. ASSESSMENT AND PLAN: 54 yom with PMHx of asthma, gout (on allopurinol), urolithiasis, colitis (s/p colon resection) admitted with left flank pain, found with TERRELL, obstructive uropathy. -Obstructive uropathy with 6mm left UPJ stone with left hydronephrosis -r/o complicated UTI/Left pyelonephritis -TERRELL, suspect multifactorial from obstructive uropathy/bactrim +/- hypovolumia -h/o Gout -CT finds of ?Colitis, no clinical evidence -thickened Gall bladder wall, ?Chronic cholecystitis, no acute sypmptoms Plan: Symptoms resolved. renal function improved. Repeat renal/bladder US with no hydronephrosis or obstructing stone. Noted calculus in bladder. Aggressive hydration and straining all urine x 24 hours Urine cx neg, d/c abx. Discussed with Dr. Maya, given resolved symptoms, outpatient follow up. Flomax started bactrim prescribed on 09/07, patient states was for nail infection, which could have contributed to current TERRELL as well. Avoid bactrim/NSAIDs. No GI or RUQ concerns on clinical exam or history, Monitor clinically and outpatient follow up. DVTPPx heparin Dispo dc home in 24 hours with outpatient urology follow up if continues to improve. Plan discussed with patient and nursing in detail, all questions answered.
[2019-10-14 08:20] LABS: BILIRUBIN,TOTAL 0.7 mg/dL (0.2-1); BLOOD UREA NITROGEN 19.5 mg/dL (7-18); CALCIUM 8.2 mg/dL (8.5-10.1); CREATININE 1.7 mg/dL (0.55-1.3); MAGNESIUM 2.1 mg/dL (1.8-2.4); PHOSPHOROUS 2.7 mg/dL (2.5-4.9); POTASSIUM 3.5 mmol/L (3.5-5.1); TOT PROT 6.3 g/dl (6.4-8.2)
[2019-10-14] MEDS: ACETAMINOPHEN 1000 MG/100 ML VIAL (NON FORMULARY) IVPB PRN (09:10)
[2019-10-14] MEDS: TAMSULOSIN HCL 0.4 MG CAP PO SCH (09:10)
--- NOTE | 2019-10-14 11:52 | PN ---
Physical Exam: SUBJECTIVE: Patient seen and examined this am. Continues to urinate overnight, Pain improved. No acute complaints otherwise. OBJECTIVE: Vital Signs Period Temp Pulse Resp BP Sys/Chavez Pulse Ox Last 24 Hr 97.5 F-98.3 F 59-69 18-18 111-119/40-77 99 GENERAL: A&Ox3, NAD HEAD: NCAT EYES: PERRL, EOMI ENT: MMM LUNGS: CTAB, No wheezes, no crackles HEART: Regular rate and rhythm, normal S1 and S2 without murmur ABDOMEN: Soft, nontender, not distended, + bowel sounds, no guarding. Healed surgical scars over mid-abdomen. MUSCULOSKELETAL: No CVA tenderness. EXTREMITIES: No peripheral edema. NEUROLOGICAL: Cranial nerves II-XII intact. SKIN: Warm, dry Laboratory Results - last 24 hr 10/13/19 10/14/19 10/14/19 06:00 06:36 06:36 WBC 9.1 RBC 4.52 Hgb 14.2 Hct 41.8 MCV 92.6 MCH 31.5 MCHC 34.0 RDW 13.6 Plt Count 210 MPV 8.2 Absolute Neuts (auto) 6.1 Neutrophils % 67.0 Lymphocytes % 19.2 D Monocytes % 7.9 Eosinophils % 5.6 H D Basophils % 0.3 Nucleated RBC % 0 Sodium 142 Potassium 3.5 Chloride 114 H Carbon Dioxide 23 Anion Gap 5 L BUN 19.5 H Creatinine 1.7 H Est GFR (CKD-EPI)AfAm 51.47 Est GFR (CKD-EPI)NonAf 44.41 Random Glucose 83 Calcium 8.2 L Phosphorus 2.7 Magnesium 2.1 Total Bilirubin 0.7 AST 23 ALT 32 Alkaline Phosphatase 118 H Total Protein 6.3 L Albumin 3.0 L U Pathogenic Cast Auto Few Urine Crystals (Auto) Few Urine Yeast (Auto) None seen Microbiology 10/13/19 00:12 Urine - Urine Clean Catch Urine Culture - Final NO GROWTH OBTAINED Active Medications Heparin Sodium (Porcine) (Heparin -) 5,000 unit SQ TID [facility] Last Admin: 10/14/19 06:45 Dose: Not Given Sodium Chloride (Normal Saline -) 1,000 mls @ 150 mls/hr IV ASDIR [facility] Last Admin: 10/14/19 06:45 Dose: Not Given Tamsulosin HCl (Flomax -) 0.4 mg PO DAILY@0830 [facility] Last Admin: 10/14/19 09:10 Dose: 0.4 mg ASSESSMENT/PLAN: 54 y/o M with PMHx asthma, gout (on allopurinol), urolithiasis, colitis (s/p colon resection) admitted for ureterolithiasis. #Ureterolithiasis -Continue IV Hydration -Continue Tamsulosin -Renal/Bladder US noted, No [place], No Renal calculi, Bladder calculi present -Urine culture neg, D/C ABx -Monitor Cr, Strain urine -Urology consulted #TERRELL vs CKD -Continue IV Hydration -Monitor Cr -Avoid Nephrotoxic agents #Prostatomegaly -F/U Urology outpatient #Cholelithiasis -F/U Gen surg outpatient #FEN -NS @ 150 -Replete PRN -Regular diet #PPx -DVT: Heparin Dispo: Monitor on Med-Surg Visit type - Emergency Visit Emergency Visit: Yes ED Registration Date: 10/13/19 Care time: The patient presented to the Emergency Department on the above date and was hospitalized for further evaluation of their emergent condition. - New Patient This patient is new to me today: Yes Date on this admission: 10/14/19 - Critical Care Critical Care patient: No ATTENDING PHYSICIAN STATEMENT I saw and evaluated the patient. I reviewed the resident's note and discussed the case with the resident. I agree with the resident's findings and plan as documented. SUBJECTIVE: OBJECTIVE: ASSESSMENT AND PLAN:
--- NOTE | 2019-10-14 12:09 | CONS ---
DATE OF CONSULTATION: 10/13/2019 The patient is a 54-year-old, who was admitted with left-sided renal colic. Patient had a CAT scan which was read as showing a 6-mm stone in the proximal ureter. I reviewed the CT. It appears to be even smaller than 6 mm, just at or possibly distal to the left UPJ with mild dilatation of the renal pelvis on that side. The patient has been afebrile since admission but continues to intermittently have pain. He has been able to eat. I would encouraged this patient to be out of bed, up and about, and push fluids and see whether he could be managed on oral analgesics. If he can, and if he remains afebrile, he can be discharged for further management as an outpatient. If the patient requires IV analgesics or has a problem with nausea and vomiting, then he will require being brought to the OR for ureteroscopy with a stent placement. If the patient spikes a fever, this will be done as an emergency. If he does not, as noted he can be managed possibly as an outpatient as long as there is no requirement for IV fluids or IV analgesics. MD SELAM HERNANDEZ/[id number]
[2019-10-14] MEDS ORDERED: LORATADINE 10 MG TABLET PO ONE (14:19)
[2019-10-14] MEDS ORDERED: POLYETHYLENE GLYCOL 3350 119 GM BTL PO ONE (19:30)
[2019-10-15] MEDS ORDERED: ACETAMINOPHEN 1000 MG/100 ML VIAL (NON FORMULARY) IVPB ONE (00:39)
[2019-10-15] MEDS ORDERED: diphenhydrAMINE HCL 25 MG CAPSULE (FP) PO ONE (02:24)
[2019-10-15] MEDS: SODIUM CHLORIDE 1,000 ML IV SCH ×2 (04:24→07:00)
[2019-10-15] MEDS: HEPARIN NA (PORCINE) 5,000 UNITS/ML 1ML VIAL SQ SCH ×2 (05:31→13:32)
[2019-10-15] MEDS: TAMSULOSIN HCL 0.4 MG CAP PO SCH (08:55)
[2019-10-15 09:02] VITALS: BP 115/67; PULSE 73; TEMP 98.4
[2019-10-15 09:04] LABS: BLOOD UREA NITROGEN 19.9 mg/dL (7-18); CREATININE 1.5 mg/dL (0.55-1.3); MAGNESIUM 1.7 mg/dL (1.8-2.4); POTASSIUM 3.4 mmol/L (3.5-5.1)
[2019-10-15] MEDS ORDERED: MAGNESIUM SULF 50% (8.12 MEQ/2 ML-1 GM VIAL) IVPB ONE (09:09)
[2019-10-15] MEDS ORDERED: POTASSIUM CHLORIDE TABS 20 MEQ TABLET.ER (FP) PO ONE (09:30)
--- NOTE | 2019-10-15 13:20 | PN ---
Teaching Attending Note Name of Resident: Sami Ortiz ATTENDING PHYSICIAN STATEMENT I saw and evaluated the patient. I reviewed the resident's note and discussed the case with the resident. I agree with the resident's findings and plan as documented with exceptions below. SUBJECTIVE: Patient seen and examined, no abdominal or flank pain, or urinary symptoms. has not noted urinary fragments. Doing well. Tolerating diet. OBJECTIVE: Vital Signs Period Temp Pulse Resp BP Sys/Chavez Pulse Ox Last 24 Hr 97.5 F-98.5 F 68-84 18-18 100-128/64-74 99 Intake & Output 10/12/19 10/13/19 10/14/19 10/15/19 23:59 23:59 23:59 23:59 Intake Total 950 1999 1470 Balance 950 1999 1470 Weight 210 lb 214 lb 5 oz General: sitting in bed, no acute distress Chest: CTAb, no rales or wheezing Abdomen:Soft, obese, NT, no CVA or suprapubic tenderness Extremities: no edema Home Medications Medication Instructions Recorded Allopurinol 300 mg PO DAILY 10/13/19 Ciclopirox [Penlac] 6.6 ml TP DAILY 10/15/19 Polyvinyl Alcohol [Artificial 2 units OU DAILY 10/15/19 Tears] Tamsulosin HCl [Flomax -] 0.4 mg PO DAILY@0830 #30 cap.er.24h 10/15/19 Terbinafine HCl 250 mg PO DAILY 10/15/19 Active Medications Heparin Sodium (Porcine) (Heparin -) 5,000 unit SQ TID [facility] Last Admin: 10/15/19 05:31 Dose: Not Given Sodium Chloride (Normal Saline -) 1,000 mls @ 150 mls/hr IV ASDIR [facility] Last Admin: 10/15/19 07:00 Dose: 150 mls/hr Tamsulosin HCl (Flomax -) 0.4 mg PO DAILY@0830 [facility] Last Admin: 10/15/19 08:55 Dose: 0.4 mg Laboratory Results - last 24 hr 10/15/19 06:00 Sodium 140 Potassium 3.4 L Chloride 113 H Carbon Dioxide 20 L Anion Gap 7 L BUN 19.9 H Creatinine 1.5 H Est GFR (CKD-EPI)AfAm 59.88 Est GFR (CKD-EPI)NonAf 51.67 Random Glucose 93 Calcium 8.0 L Phosphorus 3.0 Magnesium 1.7 L Microbiology 10/13/19 00:12 Urine - Urine Clean Catch Urine Culture - Final NO GROWTH OBTAINED ASSESSMENT AND PLAN: 54 yom with PMHx of asthma, gout (on allopurinol), urolithiasis, colitis (s/p colon resection) admitted with left flank pain, found with TERRELL, obstructive uropathy. -Obstructive uropathy with 6mm left UPJ stone with left hydronephrosis -r/o complicated UTI/Left pyelonephritis -TERRELL, suspect multifactorial from obstructive uropathy/bactrim +/- hypovolumia -h/o Gout -CT finds of ?Colitis, no clinical evidence -thickened Gall bladder wall, ?Chronic cholecystitis, no acute sypmptoms Plan: Cr improved, Symptoms resolved. Replete K/mg. Discussed with patient about need for aggressive hydration and outpatient urology follow up for definitive treatment of the stone. patient agrees to comply Urine cx neg, off abx. dc home today with outpatient urology follow up and renal function monitoring. discussed with patient in detail, all questions answered.
--- NOTE | 2019-10-15 15:33 | DS ---
Physical Exam: SUBJECTIVE: Patient seen and examined at the bedside. Patient stated that he was feeling better and his pain was minimal. He denied any acute cp, sob, abd pain, n/v/c/d, dysuria, hematuria, back pain, suprapubic pain, frequency, urgency, fever, chills, dizziness, lightheadness. OBJECTIVE: Vital Signs Period Temp Pulse Resp BP Sys/Chavez Pulse Ox Last 24 Hr 98 F-98.5 F 68-84 18-18 100-128/66-74 98-99 PHYSICAL EXAM GENERAL: Awake, alert, and fully oriented, in no acute distress. EYES: PERRL, clear conjunctiva. Noted strabismus. EARS, NOSE, THROAT: Oropharynx clear without exudates. Moist mucous membranes. LUNGS: Breath sounds equal, clear to auscultation bilaterally. No wheezes, and no crackles. No accessory muscle use. HEART: Regular rate and rhythm, normal S1 and S2 without murmur, rub. ABDOMEN: Soft, nontender, not distended, normoactive bowel sounds, no guarding, no rebound, no masses. Noted surgical scars on abdomen with chronic fibrotic changes. MUSCULOSKELETAL: No CVA tenderness (Cyrus punch negative). EXTREMITIES: 2+ pulses, warm, well-perfused. No calf tenderness. No peripheral edema. NEUROLOGICAL: Cranial nerves II-XII intact. 5/5 muscle strength bilaterally upper and lower extremities. PSYCHIATRIC: Cooperative. Good eye contact. Appropriate mood and affect. SKIN: Warm, dry, normal turgor, no rashes or lesions noted, normal capillary refill. LABS Laboratory Results - last 24 hr 10/15/19 06:00 Sodium 140 Potassium 3.4 L Chloride 113 H Carbon Dioxide 20 L Anion Gap 7 L BUN 19.9 H Creatinine 1.5 H Est GFR (CKD-EPI)AfAm 59.88 Est GFR (CKD-EPI)NonAf 51.67 Random Glucose 93 Calcium 8.0 L Phosphorus 3.0 Magnesium 1.7 L HOSPITAL COURSE: Yaron Mclean is a 54 year old male with a past medical history of asthma, gout (on allopurinol), urolithiasis, colitis (s/p colon resection) admitted for ureterolithiasis. Patient had a CT scan which showed a 6mm obstructing calculus in his left proximal ureter. Was seen by urology who advised continued hydration , tamsulosin, and to follow up in the outpatient clinic. Urine culture did not grow any bacteria and patient was monitored off antibiotics. CT noting a R renal cyst and enlarged prostate for which the patient will follow up with urology outpatient. Patient was found with cholelithasis for which the patient will follow up with his PCP and gastroenterology outpatient. Was advised to take Tylenol for pain if needed and to avoid NSAIDs. Was advised to have repeat BMP within 1 week. Patient was advised to take all his medications as prescribed, have adequate hydration, and to follow up with his PCP, urology, and gastroenterology. Patient was in agreement with the plan and reiterated it. Patient was discharged in stable medical condition. Date of Admission:10/13/19 Date of Discharge: 10/15/19 Minutes to complete discharge: 35 Discharge Summary Problems reviewed: Yes Reason For Visit: URINARY TRACT INFECTION/CALCULUS OF KIDNEY Condition: Stable - Instructions Diet, Activity, Other Instructions: You were admitted for a kidney stone. You were given pain medications and fluids. You were seen by a urologist (kidney, bladder doctor) who did not see any need for surgery at the moment. You are advised to follow up with your primary care doctor and urologist. You are advised to drink plenty of fluids. You were found to have an increased size of your prostate for which you should follow up with a urologist. You were found to have stones in your gallbladder. You are advised to follow up with a air cargo ground operations supervisor (stomach, liver, intestine doctor) outpatient. MEDICATIONS START to take Flomax 0.4mg every day, recommend taking every at nighttime till further instructed by urologist. Continue taking your other home medications as prescribed. REFERRALS Please follow up with your primary care doctor, Dr. Lonnie Crawford, within 1 week. Please follow up with the urologist, Dr. Ray Maya, within 1 week. Please follow up with the air cargo ground operations supervisor, Dr. Robin Mirza, within 1 week. SPECIAL INSTRUCTIONS Please drink plenty of fluids in order to help your kidney stone pass. If you need to take pain medications, please take acetaminophen (Tylenol). Avoid any ibuprofen, naproxen. Avoid taking the medication Bactrim before discussing it with your primary care doctor to ensure it will not make your kidney function worse. Please have a repeat blood work BMP(Basic Metabolic Panel) to measure your electrolytes and your kidney function within 1 week. If you have any symptoms of worsening pain, increased blood in the urine, difficulty urinating, painful urination, chest pain, shortness of breath, fevers , or any other general feelings of unwellness, please call 911 or go to your nearest emergency room. Referrals: Ray Maya MD [Staff Physician] - 1 Week Lonnie Crawford [Primary Care Provider] - Disposition: HOME - Home Medications Comprehensive Discharge Medication List: Ambulatory Orders Allopurinol 300 mg PO DAILY 10/13/19 Tamsulosin HCl [Flomax -] 0.4 mg PO DAILY@0830 #30 cap.er.24h 10/15/19 Problem List - Problems (1) Kidney stone Code(s): N20.0 - CALCULUS OF KIDNEY This patient is new to me today: No Emergency Visit: Yes ED Registration Date: 10/13/19 Care time: The patient presented to the Emergency Department on the above date and was hospitalized for further evaluation of their emergent condition. Critical Care patient: No - Discharge Referral Referred to [facility] Med P.C.: No
== END 2019-10-15 15:05 | disposition home or self-care (01) | DRG 690 ==
LOC: JER 21:41 → JERBED 10-13 02:55 → J5S 10-13 04:51
PROVIDERS: ADMIT Internal Medicine; ATTEND Hospitalist
DX: N13.6 Pyonephrosis (principal); N17.9 Acute kidney failure, unspecified; N13.9 Obstructive and reflux uropathy, unspecified; E87.6 Hypokalemia; K80.20 Calculus of gallbladder without cholecystitis without obstruction
CPT/HCPCS: 36415; 74176-TC; 76775-TC; 76856-TC; 80048; 80053; 81003; 83735; 84100; 84550; 85025; 85027; 87086; 93005; 93010; 99283-25; J0131; J1644; J7030